=== PATIENT | male | born 1960 | race Caucasian/White ===

== ENCOUNTER 2019-06-28 10:11 | Emergency (ER) | payer OTHER ==
[~2019-06-28] VITALS: Ht 182.9 cm; Wt 107.8 kg
[2019-06-28] MEDS ORDERED: METHOCARBAMOL 750 MG TABLET ONE (11:50)
[2019-06-28] MEDS ORDERED: KETOROLAC 30 MG/1 ML ONE (11:51)
[2019-06-28] MEDS ORDERED: KETOROLAC 30 MG/1 ML IM ONE (12:00)
[2019-06-28] MEDS ORDERED: METHOCARBAMOL 750 MG TABLET PO ONE (12:00)
[2019-06-28 12:17] VITALS: BP 170/90
== END 2019-06-28 12:19 | disposition home or self-care (01) ==
LOC: ED 12:13
DX: M54.42 Lumbago with sciatica, left side (principal); I10 Essential (primary) hypertension
CPT/HCPCS: 96372; 99283; J1885; J7512